=== PATIENT | male | born 1955 ===

== ENCOUNTER → 2022-05-23 | Outpatient (CLI) | payer MEDICARE, OTHER ==
[~2022-05-23] VITALS: Ht 172.7 cm; Wt 79.0 kg
[~2022-05-23] MED LIST: ALLO-97 PO; AMLO-257 PO; ASPI-1450 PO; ATOR20TA86 PO; CLON0.3T PO; COLC0.6T73 PO; EMPA10TA3 PO; ESCI-8 PO; GLYB2.5T76 PO; HYDR25TA2 PO; INDO-16 PO; METF-1211 PO; METO50 PO; PANT-31 PO; RISP0.5T39 PO; SITA100 PO; VALS160T2 PO
[2022-05-23 09:22] VITALS: BP 138/81
== END | disposition home or self-care (01) ==
LOC: SRCNTR 08:53
PROVIDERS: ATTEND Internal Medicine
DX: J44.9 Chronic obstructive pulmonary disease, unspecified (principal); G47.33 Obstructive sleep apnea (adult) (pediatric); I10 Essential (primary) hypertension; E11.9 Type 2 diabetes mellitus without complications; Z87.891 Personal history of nicotine dependence
CPT/HCPCS: G0463; Z7500

== ENCOUNTER → 2022-06-25 | Outpatient (CLI) | payer MEDICARE, OTHER ==
[~2022-06-25] VITALS: Ht 172.7 cm; Wt 79.0 kg
[2022-06-25 09:00] VITALS: BP 138/83
== END | disposition home or self-care (01) ==
LOC: SRCNTR 08:41
PROVIDERS: ATTEND Internal Medicine
DX: E11.9 Type 2 diabetes mellitus without complications (principal); I10 Essential (primary) hypertension; Z87.891 Personal history of nicotine dependence
CPT/HCPCS: G0463; Z7500